=== PATIENT | female | born 1990 | race Hispanic/Latino ===

== ENCOUNTER 2023-12-13 08:50 | Emergency (ER) | payer BC, MEDICAID ==
[~2023-12-13] VITALS: Ht 152.4 cm; Wt 62.6 kg
[~2023-12-13 08:50] MED LIST: NO CURRENT MEDS
[2023-12-13] MEDS: ACETAMINOPHEN 500 MG TABLET PO ONE (09:37)
[2023-12-13] MEDS ORDERED: AMOX1TAB16 PO (11:34)
[2023-12-13] MEDS ORDERED: PRED10TA23 PO (11:34)
[2023-12-13 11:47] VITALS: BP 124/83; PULSE 66; RESP 17; O2SAT 99
== END 2023-12-13 11:52 | disposition home or self-care (01) ==
LOC: EDH 08:50
DX: S02.85XA Fracture of orbit, unspecified, initial encounter for closed fracture (principal); F41.9 Anxiety disorder, unspecified; F31.9 Bipolar disorder, unspecified; Y08.89XA Assault by other specified means, initial encounter; Y93.89 Activity, other specified; Y92.89 Other specified places as the place of occurrence of the external cause; Y99.8 Other external cause status
CPT/HCPCS: 70450; 70486; 81025